=== PATIENT | female | born 1990 | race Caucasian/White ===

== ENCOUNTER 2017-06-10 14:21 | Emergency (ER) | payer OTHER ==
--- NOTE | 2017-06-10 14:49 | ERPHSYRPT ---
- History of Present Illness Time Seen by Provider: 06/10/17 14:40 Source: patient Exam Limitations: no limitations Patient Subjective Stated Complaint: cough, body aches, fever for one week. also having headache today Triage Nursing Assessment: skin w/d, color normal, resp easy. occasional dry cough noted. Physician History: 26-year-old white female arrives with complaint of cough nasal congestion headache general aches symptoms for a week. She was seen by her family doctor Sunday diagnosed with flu. Patient states she continues to cough. Past medical history is remarkable for migraines, depression Past surgical history includes tubal ligation tonsillectomy adenoidectomy. Timing/Duration: week(s) (one week) Severity: moderate Modifying Factors: Improves With: nothing Associated Symptoms: cough, fever, headaches, No nausea, No vomiting, No abdominal pain, No shortness of breath, No heartburn, No diaphoresis, No chills , No chest pain, No loss of appetite, No malaise, No rash, No syncope, No seizure, No weakness Allergies/Adverse Reactions: No Known Drug Allergies Allergy (Verified 06/10/17 14:33) Hx Tetanus, Diphtheria Vaccination/Date Given: No Hx Influenza Vaccination/Date Given: No Hx Pneumococcal Vaccination/Date Given: No Immunizations Up to Date: No - Review of Systems Constitutional: Fever Eyes: No Symptoms Ears, Nose, & Throat: Ear Pain, Nose Congestion, Nose Discharge, Sinus Drainage , No Ear Discharge, No Hearing Changes, No Tinnitus, No Nose Pain, No Epistaxis , No Mouth Pain, No Mouth Swelling, No Loose Teeth, No Throat Pain, No Throat Swelling, No Hoarse, No Painful Swallowing, No Snoring Respiratory: Cough, No Cyanosis, No Dyspnea, No Dyspnea on Exertion (FLORES), No Stridor, No Wheezing Cardiac: No Chest Pain, No Edema, No Syncope Abdominal/Gastrointestinal: No Abdominal Pain, No Nausea, No Vomiting, No Diarrhea Genitourinary Symptoms: No Dysuria Musculoskeletal: No Back Pain, No Neck Pain Skin: No Rash Neurological: No Dizziness, No Focal Weakness, No Sensory Changes Psychological: No Symptoms Endocrine: No Symptoms All Other Systems: Reviewed and Negative - Past Medical History Pertinent Past Medical History: Yes Neurological History: Migraines ENT History: No Pertinent History Cardiac History: No Pertinent History Respiratory History: No Pertinent History Endocrine Medical History: No Pertinent History Musculoskeletal History: No Pertinent History GI Medical History: No Pertinent History History: No Pertinent History Psycho-Social History: Depression Female Reproductive Disorders: No Pertinent History - Past Surgical History Past Surgical History: Yes Neuro Surgical History: No Pertinent History Cardiac: No Pertinent History Respiratory: No Pertinent History Gastrointestinal: No Pertinent History Genitourinary: No Pertinent History Musculoskeletal: No Pertinent History Female Surgical History: Tubal Ligation Other Surgical History: T&A in childhood throat cyst removal in childhood - Social History Smoking Status: Never smoker How long have you smoked: 1 Exposure to second hand smoke: No Drug Use: none Patient Lives Alone: No - Female History Hx Last Menstrual Period: now Hx Now: No - Nursing Vital Signs Nursing Vital Signs: Initial Vital Signs Temperature 97.8 F 06/10/17 14:29 Pulse Rate 100 H 06/10/17 14:29 Respiratory Rate 20 06/10/17 14:29 Blood Pressure 114/83 06/10/17 14:29 O2 Sat by Pulse Oximetry 100 06/10/17 14:29 Pain Scale Pain Intensity 9 - Physical Exam General Appearance: mild distress Eye Exam: PERRL/EOMI, eyes nml inspection Ears, Nose, Throat Exam: moist mucous membranes, TM abnormal (R), other (nasal mucosa erythematous tender with percussion maxillary sinuses) Neck Exam: normal inspection, non-tender, supple, full range of motion Respiratory Exam: rhonchi (occasional rhonchi clear with cough) Cardiovascular Exam: regular rate/rhythm, normal heart sounds, normal peripheral pulses Gastrointestinal/Abdomen Exam: soft Back Exam: normal inspection, normal range of motion, No CVA tenderness, No vertebral tenderness Extremity Exam: normal inspection, normal range of motion, pelvis stable Neurologic Exam: alert, oriented x 3, cooperative, youth officer II-XII nml as tested, normal mood/affect, nml cerebellar function, nml station & gait, sensation nml, No motor deficits SpO2 Interpretation: normal (94%) SpO2: 94 Oxygen Delivery: Room Air - Course Nursing assessment & vital signs reviewed: Yes - Radiology Exams Chest X-ray Interpretation: Interpreted by me, Other (chest x-ray: no acute disease process noted) Ordered Tests: Active Orders 24 hr Category Date Time Status CHEST 1 VIEW (PORTABLE) Stat Exams 06/10/17 14:44 Taken Medication Summary Discontinued Medications Generic Name Dose Route Start Last Admin Trade Name Freq PRN Reason Stop Dose Admin Azithromycin 500 mg 06/10/17 15:36 Zithromax 250 Mg Tablet PO 06/10/17 15:37 STAT ONE - Progress Progress: improved Progress Note: 06/10/17 14:49 This is a 26-year-old white female with history of migraines, depression She states she has had a cough nasal congestion occasional headache occasional fever off and on for a week. She further states that she was seen by her family doctor on Sunday 6 days ago told she had the flu but did not receive Flu treatment. Patient did have a smell similar to tobacco smoke about her I asked her if she was smoking she states she does not smoke but that her does. On physical examination she has boggy erythematous nasal mucosa she has a right otitis media. Throat is clear. She has scattered rhonchi in her lungs which clear with coughing. She has good perfusion to all extremities blood pressure is stable pulse ox is 100%. Patient has no signs of sepsis. And is afebrile Will go ahead and obtain chest x-ray. 06/10/17 15:32 patient feeling better after [place]. Chest x-ray no acute disease proces. Will place patient on Zithromax, Hector. Diagnosis bronchitis sinusitis. - Departure Time of Disposition: 15:32 Departure Disposition: Home Clinical Impression: Bronchitis Sinusitis Qualifiers: Sinusitis location: unspecified location Chronicity: acute Recurrence: non- recurrent Qualified Code(s): J01.90 - Acute sinusitis, unspecified Condition: Fair Critical Care Time: No Referrals: KAROLINA SY MD [Primary Care Provider] - Additional Instructions: Return home. Zithromax Z-MAXX as directed. Hector as directed. Plenty of fluids. Tell your to smoke outside and not around you. Follow-up with your family Dr. symptoms are worse, no better in 48 hours, or persist longer than one week. Return for acute distress or for severe symptoms Prescriptions: Azithromycin 250 mg [Zithromax 250 MG TABLET] 0 mg PO ZPACK #6 tablet Hydrocodone/Acetaminophen [Hector 5-325 Tablet] 1 tab PO Q4-6HPRN PRN #12 tablet MDD 6 tablets PRN Reason: Pain
[2017-06-10] MEDS ORDERED: Zithromax 250 MG TABLET PO ONE (15:36)
[2017-06-10] MEDS ORDERED: Zithromax 250 MG TABLET ONE (15:42)
[2017-06-10 15:58] VITALS: BP 118/60; PULSE 99; O2SAT 100
--- NOTE | 2017-06-10 20:58 | XRAY ---
Indication: Cough. Comparison: August 22, 2013. Portable chest again demonstrates normal heart, lungs, and bony thorax.
== END 2017-06-10 16:10 | disposition home or self-care (01) ==
LOC: ED 14:21
DX: J40 Bronchitis, not specified as acute or chronic (principal); J01.90 Acute sinusitis, unspecified
CPT/HCPCS: 71045; 99283; 99284; A9270-GY

== ENCOUNTER 2018-02-13 10:24 | Emergency (ER) | payer OTHER ==
[2018-02-13] MEDS ORDERED: Sodium Chloride 0.9% 1000 ML 1,000 ML IV STA ×2 (10:47→11:27)
[2018-02-13] MEDS ORDERED: ZOFRAN ODT 4 MG PO ONE (10:47)
[2018-02-13] MEDS ORDERED: Zofran 4 MG/2 ML VIAL ONE (10:50)
[2018-02-13] MEDS ORDERED: PROTONIX 40 MG IV IV ONE ×2 (10:51→10:52)
[2018-02-13] MEDS ORDERED: Sodium Chloride 0.9% 1000 ML 1,000 ML ONE ×2 (10:51→13:00)
[2018-02-13] MEDS ORDERED: TORAdol 30 mg Injection ONE (10:51)
[2018-02-13] MEDS ORDERED: Zofran 4 MG/2 ML VIAL IV ONE (11:02)
[2018-02-13] MEDS ORDERED: TORAdol 30 mg Injection IV ONE (11:02)
[2018-02-13 11:16] LABS: BASOPHIL % 0.3 % (0.0-0.4); Basophil (Absolute #) 0.03 (0-0.4); Eosinophil % 1.2 % (0.00-5.0); Eosinophil (Absolute #) 0.12 (0-0.5); Hematocrit 47.2 % (35-47); Hemoglobin 15.2 gm/dl (12.0-16.0); Lymphocyte (Absolute #) 3.34 (1.0-4.6); Lymphocytes % 32.4 % (24.0-44.0); Mean Corpuscular Hemoglobin 30.6 pg (26-32); Mean Corpuscular Hgb Concent. 32.2 g/dl (32-36); Mean Platelet Volume 11.6 fl (6-9.5); Monocyte (Absolute #) 0.73 (0.0-1.3); Monocytes % 7.1 % (0.0-12.0); Platelet Count 283 K/mm3 (150-450); Red Blood Count 4.97 M/mm3 (4.1-5.4); Red Cell Distribution Width 13.1 % (11.5-14.0); White Blood Count 10.3 K/mm3 (4.0-10.5)
[2018-02-13 11:17] LABS: Appearance CLOUDY (CLEAR); Bilirubin MODERATE (NEGATIVE); Blood NEGATIVE Ery/ul (0-5); Glucose NEGATIVE (NEGATIVE); Ketones TRACE (NEGATIVE); Leukocyte Esterase SMALL (NEGATIVE); Nitrite NEGATIVE (NEGATIVE); Protein,Urine Dip 100 (Negative); Specific Gravity 1.029 (1.005-1.025); Urobilinogen 2 mg/dL (0-1)
--- NOTE | 2018-02-13 11:31 | ERPHSYRPT ---
- History of Present Illness Time Seen by Provider: 02/13/18 10:37 Historian: patient Exam Limitations: clinical condition Patient Subjective Stated Complaint: N&V for past 2 weeks off and on Triage Nursing Assessment: Pt c/o of N&V for the past 2 weeks off and on, vitals wnl, afebrile, pulses normal, last BM this morning-diarrhea, last oral intake last night, rates pain in abdomen as an 8/10, pain with palpation in the lower medial abdomen, still has gall bladder and appendix Physician History: PATIENT COMPLAINS OF FREQUENT EPISODES OF EMESIS, AND WATERY DIARRHEA 4-5 TIMES DAILY FOR 2 WEEK. HAS CRAMPY UPPER ABDOMINAL PAINS, PAIN SCALE 8/10. DENIES ASSOCIATED FEVER, URINARY SYMPTOMS, WEAKNESS OR DIZZINESS. Timing/Duration: week(s) Activities at Onset: none Quality: cramping Abdominal Pain Onset Location: RUQ, epigastric Pain Radiation: no radiation Severity of Pain-Max: moderate Severity of Pain-Current: mild Modifying Factors: Improves With: defecating, vomiting Associated Symptoms: diarrhea, nausea, vomiting Previous symptoms: no prior history Allergies/Adverse Reactions: No Known Drug Allergies Allergy (Verified 02/13/18 10:39) Hx Tetanus, Diphtheria Vaccination/Date Given: No Hx Influenza Vaccination/Date Given: No Hx Pneumococcal Vaccination/Date Given: No - Review of Systems Constitutional: No Fever, No Chills Eyes: No Symptoms Ears, Nose, & Throat: No Symptoms Respiratory: No Cough, No Dyspnea Cardiac: No Chest Pain, No Edema, No Syncope Abdominal/Gastrointestinal: Abdominal Pain, Nausea, Vomiting, Diarrhea Genitourinary Symptoms: No Symptoms, No Dysuria Musculoskeletal: No Symptoms, No Back Pain, No Neck Pain Skin: No Rash Neurological: No Dizziness, No Focal Weakness, No Sensory Changes Psychological: No Symptoms Endocrine: No Symptoms All Other Systems: Reviewed and Negative - Past Medical History Pertinent Past Medical History: Yes Neurological History: Migraines ENT History: No Pertinent History Cardiac History: No Pertinent History Respiratory History: No Pertinent History Endocrine Medical History: No Pertinent History Musculoskeletal History: No Pertinent History GI Medical History: No Pertinent History History: No Pertinent History Psycho-Social History: Depression Female Reproductive Disorders: No Pertinent History - Past Surgical History Past Surgical History: Yes Neuro Surgical History: No Pertinent History Cardiac: No Pertinent History Respiratory: No Pertinent History Gastrointestinal: No Pertinent History Genitourinary: No Pertinent History Musculoskeletal: No Pertinent History Female Surgical History: Tubal Ligation Other Surgical History: T&A in childhood throat cyst removal in childhood - Social History Smoking Status: Current every day smoker How long have you smoked: 1 Exposure to second hand smoke: No Drug Use: none Patient Lives Alone: No - Female History Hx Last Menstrual Period: 01/29/2018 Hx Now: No (tubal) - Nursing Vital Signs Nursing Vital Signs: Initial Vital Signs Temperature 98.0 F 02/13/18 10:27 Pulse Rate 105 H 02/13/18 10:27 Blood Pressure 113/74 02/13/18 10:27 O2 Sat by Pulse Oximetry 98 02/13/18 10:27 Pain Scale Pain Intensity 2 - Physical Exam General Appearance: no apparent distress, alert Eye Exam: PERRL/EOMI, eyes nml inspection Ears, Nose, Throat Exam: normal ENT inspection, pharynx normal, moist mucous membranes Neck Exam: normal inspection, non-tender, supple, full range of motion Respiratory Exam: normal breath sounds, lungs clear, No respiratory distress Cardiovascular Exam: regular rate/rhythm, normal heart sounds, tachycardia Gastrointestinal/Abdomen Exam: soft, normal bowel sounds, No tenderness (RUQ AND EPIGASTRIC TENDERNESS, NO GUARDING OR REBOUND TENDERNESS), No mass Back Exam: normal inspection, normal range of motion, No CVA tenderness, No vertebral tenderness Extremity Exam: normal inspection, normal range of motion, pelvis stable Neurologic Exam: alert, oriented x 3, cooperative, normal mood/affect, nml cerebellar function, sensation nml, No motor deficits Skin Exam: normal color, warm, dry SpO2: 98 Oxygen Delivery: Room Air - CT Exams Abdomen/Pelvis CT Interpretation: Discussed w/radiologist, Normal Appendix (NEGATIVE STUDY) Ordered Tests: Active Orders 24 hr Category Date Time Status Clean Catch Urine Specimen STAT Care 02/13/18 10:47 Active ABDOMEN AND PELVIS W CONTRAST [CT] Stat Exams 02/13/18 11:32 Completed AMYLASE Stat Lab 02/13/18 10:25 Completed BLOOD CULTURE Stat Lab 02/13/18 11:04 Received CBC W DIFF Stat Lab 02/13/18 10:25 Completed CMP Stat Lab 02/13/18 10:25 Completed CULTURE,URINE Stat Lab 02/13/18 10:45 Received LIPASE Stat Lab 02/13/18 10:25 Completed Lactic Acid Stat Lab 02/13/18 10:47 Completed UA W/RFX UR CULTURE Stat Lab 02/13/18 10:45 Completed Urine Triage Profile Stat Lab 02/13/18 10:25 Completed Medication Summary Discontinued Medications Generic Name Dose Route Start Last Admin Trade Name Derrick PRN Reason Stop Dose Admin Sodium Chloride 1,000 mls @ 999 mls/hr 02/13/18 10:47 02/13/18 13:34 Sodium Chloride 0.9% 1000 Ml IV 02/13/18 11:47 Infused .Q1H1M STA Infusion Sodium Chloride Confirm 02/13/18 10:51 Sodium Chloride 0.9% 1000 Ml Administered 02/13/18 10:52 Dose 1,000 mls @ ud .ROUTE .STK-MED ONE Sodium Chloride 1,000 mls @ 999 mls/hr 02/13/18 11:27 02/13/18 13:16 Sodium Chloride 0.9% 1000 Ml IV 02/13/18 12:27 999 mls/hr .Q1H1M STA Administration Ceftriaxone Sodium/Dextrose 1 g in 50 mls @ 100 mls/hr 02/13/18 11:32 13:36 Rocephin 1 Gm-D5w 50 Ml Bag IV 02/13/18 12:01 Infused STAT STA Infusion Sodium Chloride Confirm 02/13/18 12:49 Sodium Chloride 0.9% 1000 Ml Administered 02/13/18 12:50 Dose 1,000 mls @ ud .ROUTE .STK-MED ONE Sodium Chloride Confirm 02/13/18 13:00 Sodium Chloride 0.9% 1000 Ml Administered 02/13/18 13:01 Dose 1,000 mls @ ud .ROUTE .STK-MED ONE Ceftriaxone Sodium/Dextrose Confirm 02/13/18 13:00 Rocephin 1 Gm-D5w 50 Ml Bag Administered 02/13/18 13:01 Dose 1 g in 50 mls @ ud IV .STK-MED ONE Ketorolac Tromethamine Confirm 02/13/18 10:51 Toradol 30 Mg Injection Administered 02/13/18 10:52 Dose 30 mg .ROUTE .STK-MED ONE Ketorolac Tromethamine 30 mg 02/13/18 11:02 02/13/18 11:08 Toradol 30 Mg Injection IV 02/13/18 11:03 30 mg STAT ONE Administration Ondansetron HCl 4 mg 02/13/18 10:47 02/13/18 11:07 Zofran Odt 4 Mg PO 02/13/18 10:48 Not Given STAT ONE Ondansetron HCl Confirm 02/13/18 10:50 Zofran 4 Mg/2 Ml Vial Administered 02/13/18 10:51 Dose 4 mg .ROUTE .STK-MED ONE Ondansetron HCl 4 mg 02/13/18 11:02 02/13/18 11:08 Zofran 4 Mg/2 Ml Vial IV 02/13/18 11:03 4 mg STAT ONE Administration Pantoprazole Sodium Confirm 02/13/18 10:51 Protonix 40 Mg Iv Administered 02/13/18 10:52 Dose 40 mg IV .STK-MED ONE Pantoprazole Sodium 40 mg 02/13/18 10:52 02/13/18 11:00 Protonix 40 Mg Iv IV 02/13/18 10:53 40 mg STAT ONE Administration Lab/Rad Data: Laboratory Result Diagrams 02/13/18 10:25 02/13/18 10:25 Laboratory Results 02/13/18 02/13/18 02/13/18 Range/Units 10:47 10:45 10:25 WBC (4.0-10.5) K/mm3 RBC (4.1-5.4) M/mm3 Hgb (12.0-16.0) gm/dl Hct (35-47) % MCV (78-100) fl MCH (26-32) pg MCHC (32-36) g/dl RDW (11.5-14.0) % Plt Count (150-450) K/mm3 MPV (6-9.5) fl Gran % (36.0-66.0) % Eos # (Auto) (0-0.5) Absolute Lymphs (auto) (1.0-4.6) Absolute Monos (auto) (0.0-1.3) Lymphocytes % (24.0-44.0) % Monocytes % (0.0-12.0) % Eosinophils % (0.00-5.0) % Basophils % (0.0-0.4) % Absolute Granulocytes (1.4-6.9) Basophils # (0-0.4) Sodium (137-145) mmol/L Potassium (3.5-5.1) mmol/L Chloride (98-107) mmol/L Carbon Dioxide (22-30) mmol/L Anion Gap (5-15) MEQ/L BUN (7-17) mg/dL Creatinine (0.52-1.04) mg/dL Estimated GFR ML/MIN Glucose (74-106) mg/dL Lactic Acid 1.1 (0.4-2.0) Calcium (8.4-10.2) mg/dL Total Bilirubin (0.2-1.3) mg/dL AST (14-36) U/L ALT (0-35) U/L Alkaline Phosphatase (38-126) U/L Serum Total Protein (6.3-8.2) g/dL Albumin (3.5-5.0) g/dL Amylase (30-110) U/L Lipase (23-300) U/L Urine Color JENY (YELLOW) Urine Appearance CLOUDY (CLEAR) Urine pH 5.0 (5-6) Ur Specific Ellis 1.029 (1.005-1.025) Urine Protein 100 (Negative) Urine Ketones TRACE (NEGATIVE) Urine Blood NEGATIVE (0-5) Jose Carlos/ul Urine Nitrite NEGATIVE (NEGATIVE) Urine Bilirubin MODERATE (NEGATIVE) Urine Urobilinogen 2 (0-1) mg/dL Ur Leukocyte Esterase SMALL (NEGATIVE) Urine WBC (Auto) 26-50 (0-5) /HPF Urine RBC (Auto) 3-5 (0-2) /HPF U Epithel Cells (Auto) FEW (FEW) /HPF Urine Bacteria (Auto) RARE (NEGATIVE) /HPF Other Casts (Auto) 25-50 (NEGATIVE) /LPF Urine Mucus (Auto) MANY (NEGATIVE) /HPF Urine Culture Reflexed YES (NO) Urine Glucose NEGATIVE (NEGATIVE) mg/dL Urine Opiates Level NEGATIVE (NEGATIVE) Ur Methadone NEGATIVE (NEGATIVE) Urine Barbiturates NEGATIVE (NEGATIVE) Ur Phencyclidine (PCP) NEGATIVE (NEGATIVE) Urine Amphetamine NEGATIVE (NEGATIVE) U Benzodiazepine Level NEGATIVE (NEGATIVE) Urine Cocaine NEGATIVE (NEGATIVE) Urine Marijuana (THC) NEGATIVE (NEGATIVE) 18 02/13/18 Range/Units 10:25 10:25 WBC 10.3 (4.0-10.5) K/mm3 RBC 4.97 (4.1-5.4) M/mm3 Hgb 15.2 (12.0-16.0) gm/dl Hct 47.2 H (35-47) % MCV 95.0 (78-100) fl MCH 30.6 (26-32) pg MCHC 32.2 (32-36) g/dl RDW 13.1 (11.5-14.0) % Plt Count 283 (150-450) K/mm3 MPV 11.6 H (6-9.5) fl Gran % 59.0 (36.0-66.0) % Eos # (Auto) 0.12 (0-0.5) Absolute Lymphs (auto) 3.34 (1.0-4.6) Absolute Monos (auto) 0.73 (0.0-1.3) Lymphocytes % 32.4 (24.0-44.0) % Monocytes % 7.1 (0.0-12.0) % Eosinophils % 1.2 (0.00-5.0) % Basophils % 0.3 (0.0-0.4) % Absolute Granulocytes 6.10 (1.4-6.9) Basophils # 0.03 (0-0.4) Sodium 142 (137-145) mmol/L Potassium 3.5 (3.5-5.1) mmol/L Chloride 102 (98-107) mmol/L Carbon Dioxide 26 (22-30) mmol/L Anion Gap 16.8 H (5-15) MEQ/L BUN 14 (7-17) mg/dL Creatinine 0.81 (0.52-1.04) mg/dL Estimated GFR > 60.0 ML/MIN Glucose 99 (74-106) mg/dL Lactic Acid (0.4-2.0) Calcium 9.6 (8.4-10.2) mg/dL Total Bilirubin 0.40 (0.2-1.3) mg/dL AST 23 (14-36) U/L ALT 17 (0-35) U/L Alkaline Phosphatase 101 (38-126) U/L Serum Total Protein 7.8 (6.3-8.2) g/dL Albumin 4.7 (3.5-5.0) g/dL Amylase 49 (30-110) U/L Lipase 22 L (23-300) U/L Urine Color (YELLOW) Urine Appearance (CLEAR) Urine pH (5-6) Ur Specific Ellis (1.005-1.025) Urine Protein (Negative) Urine Ketones (NEGATIVE) Urine Blood (0-5) Jose Carlos/ul Urine Nitrite (NEGATIVE) Urine Bilirubin (NEGATIVE) Urine Urobilinogen (0-1) mg/dL Ur Leukocyte Esterase (NEGATIVE) Urine WBC (Auto) (0-5) /HPF Urine RBC (Auto) (0-2) /HPF U Epithel Cells (Auto) (FEW) /HPF Urine Bacteria (Auto) (NEGATIVE) /HPF Other Casts (Auto) (NEGATIVE) /LPF Urine Mucus (Auto) (NEGATIVE) /HPF Urine Culture Reflexed (NO) Urine Glucose (NEGATIVE) mg/dL Urine Opiates Level (NEGATIVE) Ur Methadone (NEGATIVE) Urine Barbiturates (NEGATIVE) Ur Phencyclidine (PCP) (NEGATIVE) Urine Amphetamine (NEGATIVE) U Benzodiazepine Level (NEGATIVE) Urine Cocaine (NEGATIVE) Urine Marijuana (THC) (NEGATIVE) - Progress Progress Note: 02/13/18 11:37 IV HYDRATION NORMAL SALINE 2 LITERS OVER 3 HOURS, ZOFRAN 4MG, TORADOL 30MG IV 02/13/18 14:05 ROCEPHIN 1GM IVPB Counseled pt/family regarding: lab results, diagnosis, need for follow-up, rad results - Departure Time of Disposition: 14:20 Departure Disposition: Home Clinical Impression: ACUTE EMESIS/DIARRHEA, Urinary tract infection Condition: Stable Critical Care Time: No Referrals: KAROLINA SY MD [Primary Care Provider] - Additional Instructions: BEGIN CLEAR LIQUID DIET FOR 24 HOURS HOURS THEN ADVANCE DIET TOLERATED. ZOFRAN 4MG EVERY 6 HOURS NEEDED FOR NAUSEA. ANTIBIOTIC LEVAQUIN 500MG DAILY FOR 10 DAYS FOR TREATMENT OF URINARY TRACT INFECTION. ULTRAM 50MG EVERY 6 HOURS FOR PAIN NEEDED. CONSULT YOUR PRIMARY CARE PROVIDER FOR FOLLOWUP. MAY TAKE OVER THE COUNTER IMODIUM EVERY 4 HOUR FOR NO MORE THAN 2 DAYS FOR TREATMENT OF DIARRHEA. Prescriptions: Ondansetron ODT 4 MG [Zofran Odt 4 mg] 4 mg PO Q6H PRN PRN #10 tab.rapdis PRN Reason: Nausea Tramadol HCl 50 mg [Ultram 50 mg] 50 mg PO Q6H PRN PRN #10 tablet PRN Reason: Pain Levofloxacin [Levaquin] 500 mg PO DAILY #10 tablet
[2018-02-13] MEDS ORDERED: ROCEPHIN 1 Gm-D5w 50 ml Bag** 1 G/50 ML IVPB IV STA (11:32)
[2018-02-13 11:33] LABS: ALBUMIN 4.7 g/dL (3.5-5.0); ALKALINE PHOSPHATASE 101 U/L (38-126); AMYLASE 49 U/L (30-110); ANION GAP 16.8 MEQ/L (5-15); BLOOD UREA NITROGEN 14 mg/dL (7-17); CHLORIDE 102 mmol/L (98-107); Calcium 9.6 mg/dL (8.4-10.2); Carbon Dioxide 26 mmol/L (22-30); Creatinine 1 0.81 mg/dL (0.52-1.04); Glucose 99 mg/dL (74-106); LIPASE 22 U/L (23-300); Potassium 3.5 mmol/L (3.5-5.1); SGOT/AST 23 U/L (14-36); SGPT/ALT 17 U/L (0-35); SODIUM 142 mmol/L (137-145); Total Protein 7.8 g/dL (6.3-8.2)
[2018-02-13 11:40] LABS: Amphetamine,Urine NEGATIVE (NEGATIVE); Barbiturate,Urine NEGATIVE (NEGATIVE); Benzodiazepine,Urine NEGATIVE (NEGATIVE); Cocaine,Urine NEGATIVE (NEGATIVE); Methadone,Urine NEGATIVE (NEGATIVE); Opiate,Urine NEGATIVE (NEGATIVE); PCP,Urine NEGATIVE (NEGATIVE); THC,Urine NEGATIVE (NEGATIVE)
--- NOTE | 2018-02-13 11:46 | XRAY ---
Indication: Diarrhea and vomiting. Multiple contiguous axial images obtained through the abdomen and pelvis using 80 cc Isovue 370 contrast only. Comparison: March 01, 2017. Lung bases remain clear. Heart is not enlarged. Noncontrasted stomach and bowel loops appear nonobstructed. Normal appendix. No free fluid/air. Remaining liver, gallbladder, pancreas, spleen, adrenal glands, kidneys, ureters, bladder, uterus, and aorta appear normal in CT appearance and attenuation. No pathologic retroperitoneal lymphadenopathy. Osseous structures intact. No ventral or inguinal hernias. Impression: Again negative CT abdomen/pelvis with contrast exam. CT DI 23.64
[2018-02-13] MEDS ORDERED: Sodium Chloride 0.9% 1000 ML 0 ML ONE (12:49)
[2018-02-13] MEDS ORDERED: ROCEPHIN 1 Gm-D5w 50 ml Bag** 1 G/50 ML IVPB IV ONE (13:00)
[2018-02-13 14:22] VITALS: BP 90/55; PULSE 53; O2SAT 100
== END 2018-02-13 14:27 | disposition home or self-care (01) ==
LOC: ED 10:24
DX: R11.2 Nausea with vomiting, unspecified (principal); R19.7 Diarrhea, unspecified; N39.0 Urinary tract infection, site not specified; F32.9 Major depressive disorder, single episode, unspecified; Z72.0 Tobacco use
CPT/HCPCS: 36000; 36415; 74177; 80053; 80307; 81001; 82150; 83605; 83690; 85025; 87040; 87086; 96360; 96365; 96374; 96375; 99284; J0696; J1885; J2405

== ENCOUNTER 2018-09-15 15:47 | Emergency (ER) | payer OTHER ==
[2018-09-15 15:56] VITALS: BP 136/73; PULSE 62; O2SAT 100
[2018-09-15] MEDS ORDERED: TORAdol 30 mg Injection IM ONE (16:10)
[2018-09-15] MEDS ORDERED: AMOXIL 500 MG PO ONE (16:11)
[2018-09-15] MEDS ORDERED: AMOXIL 500 MG ONE (16:13)
[2018-09-15] MEDS ORDERED: TORAdol 30 mg Injection ONE (16:13)
--- NOTE | 2018-09-15 16:17 | ERPHSYRPT ---
- History of Present Illness Time Seen by Provider: 09/15/18 16:10 Source: patient Exam Limitations: clinical condition Patient Subjective Stated Complaint: Pt states "I started to have a little ache in my tooth last night but now it is horrible. The pain is on the upper right side." Triage Nursing Assessment: Pt presented alert and oriented X 3, skin pwd. Pt ambulates with an upright steady gait, able to speak in clear full sentences. PT in no apparent respiratory distress. Physician History: PATIENT COMPLAINS OF SEVERE RIGHT UPPER TOOTHACHE X 3 DAYS. DENIES FEVER, DIFFICULTY SWALLOWING, BREATHING. Timing/Duration: gradual onset Severity: severe ENT Location: dental Prearrival Treatment: no prearrival treatment Modifying Factors: Improves With: nothing Associated Symptoms: jaw pain Allergies/Adverse Reactions: No Known Drug Allergies Allergy (Verified 02/13/18 10:39) Hx Tetanus, Diphtheria Vaccination/Date Given: No Hx Influenza Vaccination/Date Given: No Hx Pneumococcal Vaccination/Date Given: No Immunizations Up to Date: Yes - Review of Systems Constitutional: No Symptoms Eyes: No Symptoms Ears, Nose, & Throat: Other (DENTAL PAIN) Genitourinary Symptoms: No Symptoms Musculoskeletal: No Symptoms Neurological: No Symptoms Psychological: No Symptoms - Past Medical History Pertinent Past Medical History: Yes Neurological History: Migraines ENT History: No Pertinent History Cardiac History: No Pertinent History Respiratory History: No Pertinent History Endocrine Medical History: No Pertinent History Musculoskeletal History: No Pertinent History GI Medical History: No Pertinent History History: No Pertinent History Psycho-Social History: Depression Female Reproductive Disorders: No Pertinent History - Past Surgical History Past Surgical History: Yes Neuro Surgical History: No Pertinent History Cardiac: No Pertinent History Respiratory: No Pertinent History Gastrointestinal: No Pertinent History Genitourinary: No Pertinent History Musculoskeletal: No Pertinent History Female Surgical History: Tubal Ligation Other Surgical History: T&A in childhood throat cyst removal in childhood - Social History Smoking Status: Current every day smoker How long have you smoked: 3 years Exposure to second hand smoke: Yes Drug Use: none Patient Lives Alone: No - Female History Hx Last Menstrual Period: 09/03/2018 Hx Now: No - Nursing Vital Signs Nursing Vital Signs: Initial Vital Signs Temperature 98.9 F 09/15/18 15:52 Pulse Rate 62 09/15/18 15:52 Respiratory Rate 16 09/15/18 15:52 Blood Pressure 136/73 09/15/18 15:52 O2 Sat by Pulse Oximetry 100 09/15/18 15:52 Pain Scale Pain Intensity 10 - Physical Exam General Appearance: moderate distress Eye Exam: bilateral eye: normal inspection, PERRL, EOMI Ear Exam: bilateral ear: auricle normal, canal normal, TM normal Throat Exam: dental tenderness (DENTAL CARIES, MARKED CARIES RIGHT UPPER 3RD MOLAR WITH EROSION INTO GINGIVA. PATENT AIRWAY) Neurologic Exam: alert, oriented x 3 Skin Exam: normal color SpO2 Interpretation: normal SpO2: 100 Ordered Tests: Medication Summary Discontinued Medications Generic Name Dose Route Start Last Admin Trade Name Freq PRN Reason Stop Dose Admin Amoxicillin 500 mg 09/15/18 16:11 09/15/18 16:15 Amoxil 500 Mg PO 09/15/18 16:12 500 mg STAT ONE Administration Amoxicillin Confirm 09/15/18 16:13 Amoxil 500 Mg Administered 09/15/18 16:14 Dose 500 mg .ROUTE .STK-MED ONE Ketorolac Tromethamine 60 mg 09/15/18 16:10 09/15/18 16:15 Toradol 30 Mg Injection IM 09/15/18 16:11 60 mg STAT ONE Administration Ketorolac Tromethamine Confirm 09/15/18 16:13 Toradol 30 Mg Injection Administered 09/15/18 16:14 Dose 60 mg .ROUTE .STK-MED ONE - Progress Progress Note: 09/15/18 16:14 TORADOL 60MG IM, AMOXICILLIN 500MG ORALLY Counseled pt/family regarding: diagnosis, need for follow-up - Departure Departure Disposition: Home Clinical Impression: DENTAL CARIES Condition: Stable Critical Care Time: No Referrals: KAROLINA SY MD [Primary Care Provider] - Additional Instructions: FOLLOWUP WITH A DENTIST TOMORROW. CONSULT YOUR PRIMARY CARE PROVIDER FOR PAIN MANAGEMENT. TORADOL 10MG EVERY 6 HOURS FOR PAIN NEEDED. ANTIBIOTIC AMOXICILLIN 500MG EVERY 8 HOURS FOR 10 DAYS. TYLENOL #3 EVERY 4 HOURS FOR BREAK THROUGH PAIN. Prescriptions: Codeine Phosphate/APAP #3 [Tylenol #3 Tablet] 1 tab PO Q4H PRN PRN #8 tablet PRN Reason: Pain-TOOTHACHE Ketorolac Tromethamine [Toradol] 10 mg PO Q6H PRN PRN #20 tablet PRN Reason: Pain Amoxicillin 500 mg PO TID #30 tablet
== END 2018-09-15 17:00 | disposition home or self-care (01) ==
LOC: ED 15:47
DX: K02.9 Dental caries, unspecified (principal)
CPT/HCPCS: 96372; 99283; J1885; A9270-GY

== ENCOUNTER 2022-08-30 11:04 | Emergency (ER) | payer MEDICAID, OTHER ==
[2022-08-30 11:38] VITALS: O2SAT 100
[2022-08-30] MEDS ORDERED: HYDROCODONE-ACETAMIN 10-325 MG PO STA (11:50)
[2022-08-30] MEDS ORDERED: HYDROCODONE-ACETAMIN 10-325 MG ONE (11:56)
--- NOTE | 2022-08-30 12:16 | ERPHSYRPT ---
- History of Present Illness Time Seen by Provider: 08/30/22 11:09 Source: patient Exam Limitations: no limitations Patient Subjective Stated Complaint: Pt c/o of right swollen knee pain since yesterday Triage Nursing Assessment: Pt brought to the ER by her mother, hypertensive, rates pain as an 8/10 if someone touches her knee or if she is walking on it, pt first noticed her knee swelling yesterday when she was working 8 hours standing and it had been hurting all day and she finally looked at it and noticed the swelling, reports that her toes feel like they are "going to sleep", pt denies any hx of gout or a dvt, pulses normal, cap refill normal, doesn't appear to be in any distress Physician History: Right knee pain. 24 hours. No injury. Feels that her right knee is swollen. No other known injuries. No history of gout or other issues. She has not taken any medication that has helped it. She did try home ibuprofen. Has not tried any Tylenol. She has not tried any ice, heating pads. Allergies/Adverse Reactions: No Known Drug Allergies Allergy (Verified 08/30/22 11:38) Home Medications: No Reportable Medications [No Reported Medications] 08/30/22 [History] Hx Tetanus, Diphtheria Vaccination/Date Given: No Hx Influenza Vaccination/Date Given: No Hx Pneumococcal Vaccination/Date Given: No Travel Risk - International Travel Have you traveled outside of the country in past 3 weeks: No - Coronavirus Screening Are you exhibiting any of the following symptoms?: No Close contact with a COVID-19 positive Pt in past 14-21 Days: No - Vaccine Status Have you recieved a Covid-19 vaccination: No - Review of Systems Constitutional: No Fever, No Chills Eyes: No Symptoms Ears, Nose, & Throat: No Symptoms Respiratory: No Cough, No Dyspnea Cardiac: No Chest Pain, No Edema, No Syncope Abdominal/Gastrointestinal: No Abdominal Pain, No Nausea, No Vomiting, No Diarrhea Genitourinary Symptoms: No Dysuria Musculoskeletal: No Back Pain, No Neck Pain Skin: No Rash Neurological: No Dizziness, No Focal Weakness, No Sensory Changes Psychological: No Symptoms Endocrine: No Symptoms All Other Systems: Reviewed and Negative - Past Medical History Pertinent Past Medical History: Yes Neurological History: Migraines ENT History: No Pertinent History Cardiac History: No Pertinent History Respiratory History: No Pertinent History Endocrine Medical History: No Pertinent History Musculoskeletal History: No Pertinent History GI Medical History: No Pertinent History History: No Pertinent History Psycho-Social History: Depression Female Reproductive Disorders: No Pertinent History - Past Surgical History Past Surgical History: Yes Neuro Surgical History: No Pertinent History Cardiac: No Pertinent History Respiratory: No Pertinent History Gastrointestinal: No Pertinent History Genitourinary: No Pertinent History Musculoskeletal: No Pertinent History Female Surgical History: Tubal Ligation Other Surgical History: T&A in childhood throat cyst removal in childhood - Social History Smoking Status: Former smoker How long have you smoked: 3 years Exposure to second hand smoke: No Drug Use: none Patient Lives Alone: No - Female History Hx Last Menstrual Period: beginning of July Hx Now: No - Nursing Vital Signs Nursing Vital Signs: Initial Vital Signs Temperature 97.6 F 08/30/22 11:28 Pulse Rate 74 08/30/22 11:28 Blood Pressure 141/87 08/30/22 11:28 O2 Sat by Pulse Oximetry 100 08/30/22 11:28 Pain Scale Pain Intensity 5 - Physical Exam General Appearance: no apparent distress, alert Eye Exam: PERRL/EOMI, eyes nml inspection Ears, Nose, Throat Exam: normal ENT inspection, TMs normal, pharynx normal, moist mucous membranes Neck Exam: normal inspection, non-tender, supple, full range of motion Respiratory Exam: normal breath sounds, lungs clear, No respiratory distress Cardiovascular Exam: regular rate/rhythm, normal heart sounds, normal peripheral pulses Gastrointestinal/Abdomen Exam: soft, normal bowel sounds, No tenderness, No mass Back Exam: normal inspection, normal range of motion, No CVA tenderness, No vertebral tenderness Extremity Exam: normal inspection, normal range of motion, pelvis stable Neurologic Exam: alert, oriented x 3, cooperative, normal mood/affect, nml cerebellar function, nml station & gait, sensation nml, No motor deficits Skin Exam: normal color, warm, dry, No rash Lymphatic Exam: No adenopathy SpO2: 100 Comments: 08/30/22 12:16 No obvious deformity, sensation intact, 2+ capillary refill, 2 point tactile discrimination intact. 5 out of 5 strength. Full range of motion without pain. Compartments are soft, nontender. Overlying skin shows no tenting, bruising, ecchymosis. Ordered Tests: Active Orders 24 hr Category Date Time Status KNEE (3 VIEWS) Stat Exams 08/30/22 11:48 Completed Medication Summary Discontinued Medications Generic Name Dose Route Start Last Admin Trade Name Freq PRN Reason Stop Dose Admin Hydrocodone Bitart/Acetaminophen 1 tablet 08/30/22 11:50 08/30/22 11:59 Hydrocodone/Acetamin 10-325 Mg Tablet PO 08/30/22 11:51 Not Given Q4H PRN STA Hydrocodone Bitart/Acetaminophen Confirm 08/30/22 11:56 Hydrocodone/Acetamin 10-325 Mg Tablet Administered 08/30/22 11:57 Dose 1 tablet .ROUTE .STK-MED ONE - Progress Progress Note: 08/30/22 12:16 Plan for x-ray 08/30/22 12:34 X-ray demonstrates no fracture - my read Patient will need repeat XRs in one week, if pain continues. Return here or see PCP. Counseled pt/family regarding: rad results Medical Desision Making - Independent Historian Additional History obtained from: Family - Diagnostic Testing Diagnostic test were ordered, analyzed, and reviewed by me: Yes Radiological Interpretation: Interpreted by me - Risk of complications Minimal Risk: Minimal risk of morbidity - Departure Departure Disposition: Home Clinical Impression: Right knee pain Condition: Stable Critical Care Time: No Referrals: KAROLINA SY MD [Primary Care Provider] - Follow up/PCP as directed Instructions: Knee Pain (DC)
--- NOTE | 2022-08-30 12:32 | XRAY ---
CLINICAL HISTORY:right knee pain COMPARISON:None; TECHNIQUES:X-ray of right knee showing 3 views: AP, lateral and oblique views; FINDINGS: The tibiofemoral and patellofemoral joint spaces appear normal. No acute fracture is seen. The visualized bones forming the knee joint appear unremarkable. No osteophytes are seen. The soft tissues are unremarkable. IMPRESSION: No acute fracture or dislocation is seen. DISCLAIMER: A subtle bone abnormality or fracture may not be readily apparent on x-rays, thus clinical correlation and further imaging including follow up CT, MRI, or follow up x-rays are advised as needed. Electronically Signed by: Jesica Camara MD. (08/30/2022 11:27:45 DOCUMENT MANAGEMENT ANALYST)
[2022-08-30 12:35] VITALS: BP 129/76; PULSE 82
== END 2022-08-30 13:20 | disposition home or self-care (01) ==
LOC: ED 11:04
DX: M25.561 Pain in right knee (principal); Z28.310 Unvaccinated for COVID-19
CPT/HCPCS: 73562; 99282; A9270-GY

== ENCOUNTER 2023-05-14 08:37 | Day surgery (SDC) | payer MEDICAID, OTHER ==
--- NOTE | 2023-05-14 08:20 | HP ---
DATE OF SURGERY: 05/14/2023 HISTORY OF PRESENT ILLNESS: The patient is a 32-year-old had some right upper quadrant pain since 2022 associated with some vomiting increased, worse now. Ultrasound showed cholelithiasis. PAST MEDICAL HISTORY: Reflux as well as nausea, vomiting and right upper quadrant pain. PAST SURGICAL HISTORY: T&A. Cyst on her neck drained in the past. Right tubal in the past. MEDICATIONS: Loestrin, iron, famotidine. ALLERGIES: NKDA. FAMILY HISTORY: Negative in regards to this problem. SOCIAL HISTORY: No smoking or alcohol abuse. REVIEW OF SYSTEMS: Twelve systems reviewed. No chest pain or palpitations. Otherwise pertinent for the gallbladder and reflux. Nausea and vomiting associated with right upper quadrant pain. Other systems negative or noncontributory as above and per preadmission questionnaire. PHYSICAL EXAMINATION: Height 5'5". BMI 36.6. GENERAL: No acute distress. HEENT: Sclerae nonicteric. EOMI. Oral mucous membranes moist. NECK: No JVD. CHEST: Equal excursion, nonlabored breathing. CVS: Regular rate and rhythm. ABDOMEN: Soft, mild tenderness right upper quadrant. EXTREMITIES: No cyanosis or edema. NEURO: Alert, oriented, moving extremities symmetrically. PSYCH: Appropriate mood and affect. SKIN: Dry. IMPRESSION: Acute exacerbation chronic cholecystitis, symptomatic cholelithiasis. I feel the patient would benefit from cholecystectomy. Risks including but not limited to bleeding or infection, risk of trocar injury or hernia, risk of bile leak, bile duct injury, retained stone or sludge possibly requiring further procedure either open or ERCP, general risk of anesthesia, deep venous thrombosis, pulmonary embolism, pneumonia. General risk of aches, pains, bloating, constipation and/or loose stools possibly even chronic in nature and possibly no improvement possibly requiring further work up other studies or referrals. She understands and agrees to the planned procedure. Will schedule outpatient laparoscopic cholecystectomy possible open.
[~2023-05-14 08:37] MED LIST: Sensorcaine 0.25% 10 ML ONE
[2023-05-14 08:56] VITALS: RESP 18
[2023-05-14 08:56] LABS: HCG URINE TEST NEGATIVE (NEGATIVE)
[2023-05-14] MEDS ORDERED: MEFOXIN 2 GM PREMIX** 2 GM/50 ML ML IV SCH (09:00)
[2023-05-14] MEDS ORDERED: Lactated Ringers 1,000 ML IV SCH (09:00)
[2023-05-14] MEDS ORDERED: SUBLIMAZE 100 MCG/2 ML ONE ×2 (10:52→12:17)
[2023-05-14] MEDS ORDERED: DIPRIVAN 200 MG/20 ML IV ONE (10:52)
[2023-05-14] MEDS ORDERED: BRIDION 200MG/2ML IV ONE (10:52)
[2023-05-14] MEDS ORDERED: Zofran 4 MG/2 ML VIAL ONE ×2 (10:52→12:11)
[2023-05-14] MEDS ORDERED: Xylocaine-Mpf 2% 5 Ml Vial ONE (10:52)
[2023-05-14] MEDS ORDERED: TORAdol 30 mg Injection ONE (10:52)
[2023-05-14] MEDS ORDERED: Decadron 4 MG INJ ONE (10:52)
[2023-05-14] MEDS ORDERED: Zemuron 100 MG/10 ML ONE (10:52)
[2023-05-14] MEDS ORDERED: OFIRMEV 100 ML IV ONE (10:59)
[2023-05-14] MEDS ORDERED: DEXMEDETOMIDINE 80 MCG/20ML-NS IV ONE (11:30)
[2023-05-14] MEDS ORDERED: Ephedrine Sulfate 50 MG/ML ONE (11:35)
[2023-05-14] MEDS ORDERED: Hydromorphone 1 mg/ml Injection ONE (12:48)
[2023-05-14] MEDS ORDERED: Compazine 10 MG/2 ML IV ONE (13:27)
[2023-05-14] MEDS ORDERED: Compazine 10 MG/2 ML ONE (13:27)
[2023-05-14 13:36] VITALS: BP 101/51; PULSE 65; O2SAT 100
[2023-05-14 13:43] VITALS: TEMP 96.6
--- NOTE | 2023-05-15 07:56 | OP ---
SURGERY DATE/TIME: 05/14/2023 1101 PREOPERATIVE DIAGNOSIS: Acute exacerbation of chronic cholecystitis, symptomatic cholelithiasis. POSTOPERATIVE DIAGNOSIS: Acute exacerbation of chronic cholecystitis, symptomatic cholelithiasis. PROCEDURE: Laparoscopic cholecystectomy. SURGEON: Dr. Raj Montero. ANESTHESIA: General. ESTIMATED BLOOD LOSS: Minimal. INDICATIONS: As noted above. Risks and benefits explained in detail but not limited to and consent obtained. DESCRIPTION OF PROCEDURE AND FINDINGS: The patient was taken to the operating room. General anesthesia induced. Abdomen prepped and draped in usual sterile fashion. After official time out and no disagreement with planned procedure, a transverse incision made in the supraumbilical area. Fascia grasped, pulled upward. Veress needle inserted and tested with saline. Pneumoperitoneum accomplished insufflating opening pressure of 0-15. A 5 mm bladeless port and camera were inserted without difficulty followed by two - 5 mm right upper quadrant ports and one in the epigastric port. The gallbladder had some chronic inflammation. Dissected posterior, lateral to anterior fashion slowly and carefully the cystic duct and infundibular junction slowly carefully well skeletonized until the critical view was obtained both anteriorly and posteriorly. Once this is accomplished, the cystic duct and cystic artery were clipped x3 and divided in the usual fashion. The gallbladder is slowly and carefully dissected free from its dense attachments to the liver bed. This is a very vascular gallbladder requiring clipping additional oozing side branches off the cystic artery and cystic vein directly on the gallbladder wall carefully dissecting staying directly on the gallbladder wall dissecting free from the liver bed staying directly on the gallbladder wall. Just prior to releasing from final attachments to the anterior edge of the liver, the liver bed re-inspected. Clips noted in place in the cystic duct and cystic artery stumps. No signs of any active bleeding or bile leakage. It was felt there is no benefit of drain placement. The gallbladder was released from final attachments to anterior edge of the liver and placed in the provided sac pulled up in the epigastrium which was enlarged slightly with a clamp. The gallbladder bag had been pulled free. Otherwise the fascial defect at the 1011 site closed with puncture closure device with #1 Vicryl. Pneumoperitoneum decompressed. Inspected the liver bed one last time and clips noted to be in place in cystic duct and cystic artery stumps. Copious amount of irrigation accomplished lateral to the liver. It was felt there was no benefit in drain placement. Pneumoperitoneum decompressed. The wound is irrigated out. The skin incision closed with 4-0 Vicryl. Steri-Strips and sterile dressing applied. The patient tolerated the procedure well. There were no immediate complications. I went to look for family in the waiting room and there was no one there with her.
== END 2023-05-14 13:50 | disposition home or self-care (01) ==
LOC: SDC 08:37
PROVIDERS: ATTEND Surgery
DX: K80.10 Calculus of gallbladder with chronic cholecystitis without obstruction (principal)
CPT/HCPCS: 81025; J0694; J1100; J1170; J1885; J2405; J2704; J3010